=== PATIENT | male | born 1990 | race Two or more races ===

== ENCOUNTER 2019-02-10 02:09 | Emergency (ER) | payer OTHER ==
[2019-02-10 02:20] VITALS: BP 127/78
[2019-02-10] MEDS ORDERED: LIDOCAINE 2%/EPINEPHRINE INJ 20 ML VIAL INJ ONE (02:34)
[2019-02-10] MEDS ORDERED: DIPH/PERTUSS(ACELL)/TETANUS VAC/PF 0.5 ML SYR (>=10YO) IM ONE (02:36)
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
== END 2019-02-10 03:25 | disposition home or self-care (01) ==
LOC: ER 02:09
PROC: 0HQ0XZZ Repair Scalp Skin, External Approach (ICD-10-PCS; principal; 2019-02-10)
DX: S01.01XA Laceration without foreign body of scalp, initial encounter (principal); S06.0X9A Concussion with loss of consciousness of unspecified duration, initial encounter; R41.0 Disorientation, unspecified; V89.2XXA Person injured in unspecified motor-vehicle accident, traffic, initial encounter
CPT/HCPCS: 99284; 90471; 70450; 90715; 12001; J3490